=== PATIENT | male | born 1995 | race American Indian/Alaskan Native ===

== ENCOUNTER 2018-12-30 00:27 | Observation (INO) | payer OTHER ==
[~2018-12-30] VITALS: Ht 177.8 cm; Wt 93.3 kg
[2018-12-30 04:23] LABS: BASOPHILS ABSOLUTE AUTO 0.03 K/mm3 (0.00-0.23); BASOPHILS PERCENT AUTO 0 % (0-2); EOSINOPHILS PERCENT AUTO 0 % (0-6); Hematocrit 42.5 % (37.0-53.0); Hemoglobin 15.4 g/dL (13.5-17.5); IMMATURE GRAN ABSOLUTE AUTO 0.08 K/mm3 (0.00-0.10); IMMATURE GRAN PERCENT AUTO 0 % (0-1); LYMPHOCYTES ABSOLUTE AUTO 1.34 K/mm3 (0.84-5.20); LYMPHOCYTES PERCENT AUTO 7 % (21-46); MONOCYTES ABSOLUTE AUTO 1.82 K/mm3 (0.16-1.47); MONOCYTES PERCENT AUTO 9 % (4-13); Mean Corpuscular HGB 30.7 pg (26.0-34.0); Mean Corpuscular HGB Conc 36.2 g/dL (31.5-36.5); Mean Corpuscular Volume 85 fL (80-100); Mean Platelet Volume 11.3 fL (9.1-12.4); NEUTROPHILS ABSOLUTE AUTO 16.08 K/mm3 (1.96-9.15); NEUTROPHILS PERCENT AUTO 83 % (41-73); Platelet Count 170 K/mm3 (150-400); RDW Coefficient Variation 11.5 % (11.7-14.2); RDW Standard Deviation 35.1 fL (35.1-46.3); Red Blood Cell Count 5.02 M/mm3 (4.30-5.90); White Blood Cell Count 19.35 K/mm3 (4.00-11.30)
[2018-12-30 04:40] LABS: Influenza A Negative (NEGATIVE); Influenza B Negative (NEGATIVE)
[2018-12-30 04:41] LABS: Alanine Aminotransfer (ALT/SGP 16 U/L (12-78); Albumin, Blood 4.1 g/dL (3.4-5.0); Alk Phos 93 U/L (50-136); Anion Gap 9 mmol/L (6-16); Aspartate Aminotrans (AST/SGOT 13 U/L (12-37); Bilirubin, Total 0.8 mg/dL (0.1-1.0); Blood Urea Nitrogen 9 mg/dL (8-24); Bun/Creatinine Ratio 10.3 (12.0-20.0); CO2, Blood 27 mmol/L (21-32); Calcium, Blood 9.3 mg/dL (8.5-10.1); Chloride, Blood 100 mmol/L (98-108); Creatinine, Blood 0.88 mg/dL (0.60-1.20); Globulin, Blood 4.1 g/dL (2.2-4.0); Glomerular Filtration Rate >60 (60-); Glucose, Blood 110 mg/dL (70-99); Potassium, Blood 3.3 mmol/L (3.5-5.5); Sodium, Blood 136 mmol/L (136-145); Total Protein, Blood 8.2 g/dL (6.4-8.2)
[2018-12-30 05:42] LABS: Source, Urine Clean Catch
[2018-12-30 05:47] LABS: Bilirubin, Urine Neg (Neg); Blood, Urine Neg (Neg); Glucose Qualitative, Urine Neg (Neg); Ketones, Urine 2+ (Neg); Leukocyte Esterase, Urine Neg (Neg); Nitrite, Urine Neg (Neg); Protein, Urine 2+ (Neg); Urobilinogen, Urine 1+ (Normal); pH, Urine 6.5 (5.0-8.0)
[2018-12-30 05:53] LABS: Amorphous Light (0-Heavy); Appearance, Urine Clear (Clear); Bacteria Rare /hpf; Color, Urine Yellow (P-Yellow); Mucus Mod (0-Heavy); Red Blood Cells, Urine Not Seen /hpf (0-2); Squamous Epithelial Cells Not Seen /hpf (Few); White Blood Cells, Urine Rare /hpf (0-5)
[2018-12-30 05:58] LABS: U Amphetamine Screen Not Detected; U Barbituate Screen Not Detected; U Benzodiazapine Screen Not Detected; U Buprenorphine Screen Not Detected; U Cannabinoids Screen DETECTED; U Cocaine Screen Not Detected; U Methadone Screen Not Detected; U Methamphetamine Screen Not Detected; U Opiates Screen Not Detected; U Oxycodone Screen Not Detected; U Phencyclidine Screen Not Detected; U Propoxyphene Screen Not Detected
[2018-12-30 08:51] LABS: Adenovirus Not Detected (NOT DETECT); Bordetella pertussis Not Detected (NOT DETECT); Chlamydophila pneumoniae Not Detected (NOT DETECT); Coronavirus 229E Not Detected (NOT DETECT); Coronavirus HKU1 Not Detected (NOT DETECT); Coronavirus NL63 Not Detected (NOT DETECT); Coronavirus OC43 Not Detected (NOT DETECT); Human Metapneumovirus Not Detected (NOT DETECT); Human Rhinovirus/Enterovirus Not Detected (NOT DETECT); Influenza A Not Detected (NOT DETECT); Influenza A/2009-H1 Not Detected (NOT DETECT); Influenza A/H1 Not Detected (NOT DETECT); Influenza A/H3 Not Detected (NOT DETECT); Influenza B Not Detected (NOT DETECT); Mycoplasma pneumoniae Not Detected (NOT DETECT); Parainfluenza Virus 1 Not Detected (NOT DETECT); Parainfluenza Virus 2 Not Detected (NOT DETECT); Parainfluenza Virus 3 Not Detected (NOT DETECT); Parainfluenza Virus 4 Not Detected (NOT DETECT); Respiratory Syncytial Virus Not Detected (NOT DETECT)
--- NOTE | 2018-12-30 18:15 | NUR ---
SHIFT SUMMARY RECEIVED PT TO 361 VIA GURNEY FROM ER. PT IS A&O AND ABLE TO TX SELF TO BED. RECEIVED REPORT FROM MALGORZATA WILKS. PT TO ER WITH C/O ABD PAIN THIS AM. LEFT AMA AND LATER BROUGHT BACK BY HIS DAD WHEN ABD PAIN AND FEVER CONTINUED TO INCREASE. PT C/O NECK STIFFNESS; LUMBAR PUNCTURE DONE IN ER. PT HAS CONTINUED TO HAVE LOW GRADE TEMP SINCE COMING TO . TYLENOL AND ADVIL GIVEN, ALONG WITH COOL WASH CLOTHS WITH LITTLE EFFECT. PT HAS AMBULATED TO [facility] NEEDED, INDEPENDENTLY. RECENTLY USED HIS MOM'S FWW WITH SBA FROM HIS MOM. DR DINH UPDATED ON PT'S FEVER; NEW ORDERS PLACED. IV TO LAC NO LONGER PATENT WHEN COMING TO . NEW IV PLACED TO RFA. IVF'S INFUSING PER EMAR. PT REPORTS ABD PAIN R/T NOT EATING FOR PAST 3 DAYS. REPORTS THAT EVERY TIME HE STARTS TO EAT, HE GET'S "SICK". PT REPORTS "JUST THINKING ABOUT EATING MAKES ME SICK". ATTEMPTED TO EAT SOME JELLO, BUT UNABLE TO TOLERATE. DINNER HERE AT THIS TIME. PT WANTED TO TRY AND EAT. RESTING QUIETLY IN BED WATCHING TV. CALL LT IN REACH.
[2018-12-31 06:03] LABS: BASOPHILS ABSOLUTE AUTO 0.04 K/mm3 (0.00-0.23); BASOPHILS PERCENT AUTO 0 % (0-2); EOSINOPHILS PERCENT AUTO 0 % (0-6); Hemoglobin 14.9 g/dL (13.5-17.5); IMMATURE GRAN PERCENT AUTO 1 % (0-1); LYMPHOCYTES ABSOLUTE AUTO 2.06 K/mm3 (0.84-5.20); LYMPHOCYTES PERCENT AUTO 12 % (21-46); MONOCYTES ABSOLUTE AUTO 1.78 K/mm3 (0.16-1.47); MONOCYTES PERCENT AUTO 10 % (4-13); Mean Corpuscular HGB 30.5 pg (26.0-34.0); Mean Corpuscular HGB Conc 35.5 g/dL (31.5-36.5); Mean Corpuscular Volume 86 fL (80-100); Mean Platelet Volume 11.3 fL (9.1-12.4); NEUTROPHILS PERCENT AUTO 77 % (41-73); Platelet Count 158 K/mm3 (150-400); RDW Coefficient Variation 11.6 % (11.7-14.2); RDW Standard Deviation 36.9 fL (35.1-46.3); Red Blood Cell Count 4.88 M/mm3 (4.30-5.90); White Blood Cell Count 17.48 K/mm3 (4.00-11.30)
--- NOTE | 2018-12-31 07:20 | NUR ---
12/31/18 0600 SLEEPING ON AND OFF. RN HAD TO CALL MD FOR MELATONIN EARLIER PT UNABLE TO SLEEP. VITALS STABLE WITH LOW GRADE TEMP NOTED. TAKING ORAL FLUIDS WELL. NO C/O PAIN THIS SHIFT.
--- NOTE | 2018-12-31 15:53 | NUR ---
SHIFT SUMMARY PT SLEEPING FOR A WHILE THIS AM. PER REPORT, PT HAD DIFFICULTY GETTING TO SLEEP LAST NIGHT BEING IN THE HOSPITAL. UP INDEPENDENTLY TO [facility] NEEDED. SLEPT THRU BREAKFAST, NOT WANTING TO GET UP AND EAT, AND THEN ATTEMPTED TO GET HIS FAMILY TO BRING HIM FAST FOOD. DENIED ANY MORE NAUSEA OR STOMACH PAIN SINCE ADMISSION YESTERDAY. DID NOT WANT TO EAT LUNCH MENU ORDERED. DR DINH IN TO SEE PT AGAIN AT LUNCH TIME AND REQUESTED SPAGHETTI AND MEATBALLS. ELEPHANT KEEPER CALLED AND THEREFORE SENT UP REQUEST. PT ATE SOME OF IT. REPORTS THAT HE DOES NOT CARE FOR HOSPITAL FOOD. PT UP TO [facility] WITH LOOSE STOOLS AGAIN TODAY. REPORTED LOOSE STOOLS AT ADMIT YESTERDAY D/T NOT EATING MUCH FOR PAST FEW DAYS. ATTEMPTED TO CALL DR DINH AGAIN FOR POSSIBLE IMODIUM; NO ANS AT THIS TIME. CALL LT IN REACH.
--- NOTE | 2018-12-31 17:15 | NUR ---
DR DINH NOTIFIED OF LOOSE STOOLS. STOOL CX AND IMODIUM ORDERED. PT INFORMED.
--- NOTE | 2018-12-31 21:47 | NUR ---
12/31/182129 ENCOURAGED PT TO EAT/DRINK. STATES HE HAD "BETTER FOOD IN CUSTODIAL." RN ENCOURAGED HIM TO CALL FAMILY IF THEY WOULD BE ABLE TO BRING SOME OUTSIDE FOOD HE LIKES. HE SAID HE WOULD CALL HIS FATHER AND CHECK. ONLY C/O "HUNGER PAIN". RN DISCONNECTED IV FLUIDS SO HE COULD SHOWER AND THEN WILL RE-CONNECT IV FLUIDS AGAIN.
[2018-12-31 22:57] LABS: Adenovirus F 40/41 Not Detected (NOT DETECT); Astrovirus Not Detected (NOT DETECT); Campylobacter Sp Not Detected (NOT DETECT); Cryptosporidium Not Detected (NOT DETECT); Cyclospora Cayetanensis Not Detected (NOT DETECT); E. Coli O157 Not Detected (NOT DETECT); Entamoeba Histolytica Not Detected (NOT DETECT); Enteroaggregative E. coli-EAEC Not Detected (NOT DETECT); Enteropathogenic E. coli-EPEC Not Detected (NOT DETECT); Enterotoxigenic E. coli-ETEC Not Detected (NOT DETECT); Giardia Lamblia Not Detected (NOT DETECT); Norovirus GI/GII Not Detected (NOT DETECT); Plesiomonas Shigelloides Not Detected (NOT DETECT); Rotavirus A Not Detected (NOT DETECT); Salmonella Sp Not Detected (NOT DETECT); Sapovirus Not Detected (NOT DETECT); Shiga Toxin-prod E. coli-STEC Not Detected (NOT DETECT); Shigella/Enteroin E. coli-EIEC Not Detected (NOT DETECT); Vibrio Cholerae Not Detected (NOT DETECT); Vibrio Sp Not Detected (NOT DETECT); Yersinia Enterocolitica Not Detected (NOT DETECT)
--- NOTE | 2019-01-01 02:15 | NUR ---
01/01/19 0205 C/O "EYES FEEL LIKE THEY'RE BEING STABBED".DENIED DRY EYES. MEDICATED PER MAR. ENCOURAGED ORAL INTAKE AND HE REQUESTED CRANBERRY JUICE AND WAS GIVEN. VITALS TAKEN AND REMAIN STABLE.
[2019-01-01 08:17] LABS: BASOPHILS ABSOLUTE AUTO 0.03 K/mm3 (0.00-0.23); BASOPHILS PERCENT AUTO 0 % (0-2); EOSINOPHILS ABSOLUTE AUTO 0.05 K/mm3 (0.00-0.68); EOSINOPHILS PERCENT AUTO 0 % (0-6); Hematocrit 38.8 % (37.0-53.0); IMMATURE GRAN ABSOLUTE AUTO 0.04 K/mm3 (0.00-0.10); IMMATURE GRAN PERCENT AUTO 0 % (0-1); LYMPHOCYTES ABSOLUTE AUTO 2.72 K/mm3 (0.84-5.20); LYMPHOCYTES PERCENT AUTO 24 % (21-46); MONOCYTES ABSOLUTE AUTO 1.41 K/mm3 (0.16-1.47); MONOCYTES PERCENT AUTO 13 % (4-13); Mean Corpuscular HGB 30.2 pg (26.0-34.0); Mean Corpuscular HGB Conc 36.1 g/dL (31.5-36.5); Mean Corpuscular Volume 84 fL (80-100); Mean Platelet Volume 11.3 fL (9.1-12.4); NEUTROPHILS ABSOLUTE AUTO 6.97 K/mm3 (1.96-9.15); NEUTROPHILS PERCENT AUTO 62 % (41-73); Platelet Count 184 K/mm3 (150-400); RDW Coefficient Variation 11.7 % (11.7-14.2); RDW Standard Deviation 35.5 fL (35.1-46.3); Red Blood Cell Count 4.64 M/mm3 (4.30-5.90); White Blood Cell Count 11.22 K/mm3 (4.00-11.30)
[2019-01-01 08:30] LABS: Anion Gap 4 mmol/L (6-16); Blood Urea Nitrogen 10 mg/dL (8-24); Bun/Creatinine Ratio 14.5 (12.0-20.0); CO2, Blood 27 mmol/L (21-32); Calcium, Blood 9.1 mg/dL (8.5-10.1); Chloride, Blood 110 mmol/L (98-108); Creatinine, Blood 0.69 mg/dL (0.60-1.20); Glomerular Filtration Rate >60 (60-); Glucose, Blood 97 mg/dL (70-99); Potassium, Blood 3.5 mmol/L (3.5-5.5); Sodium, Blood 141 mmol/L (136-145)
[2019-01-01] MEDS ORDERED: ACET325 PO ×2 (10:07)
[2019-01-01] MEDS ORDERED: IBUP400 PO ×2 (10:07)
[2019-01-01] MEDS ORDERED: Anti-Diarrheal2 MG PO ×2 (10:08)
--- NOTE | 2019-01-01 11:25 | NUR ---
PATIENT D/C'D TO HOME. RX MEDICATIONS FAXED TO [facility]. D/C INSTRUCTIONS AND EDUCATION DISCUSSED WITH PATIENT AND COPY PROVIDED. PATIENT DOES NOT HAVE A PCP, PRODUCTION GRIP TO CONTACT PATIENT WITH AN APPT. PATIENT DENIES ANY FURTHER QUESTIONS OR CONCERNS.
== END 2019-01-01 11:23 | disposition home or self-care (01) ==
LOC: ER 00:27 → MEDS 15:44 → ENPENDDIS 01-01 10:14 → MEDS 01-01 11:23
PROVIDERS: Emergency Medicine; Hospitalist; ADMIT Internal Medicine
DX: A41.9 Sepsis, unspecified organism (principal); R80.9 Proteinuria, unspecified; E87.6 Hypokalemia; Z86.59 Personal history of other mental and behavioral disorders; Z53.21 Procedure and treatment not carried out due to patient leaving prior to being seen by health care provider
CPT/HCPCS: 0097U; 0099U; 36415; 71046; 80048; 80053; 81001; 83605; 83690; 83735; 83880; 84145; 84484; 85025; 87040; 87804; 93005; 93010; 96360; 96361; 99285-25; A9270; G0378; J3370; J7030; J7050

== ENCOUNTER 2018-12-30 12:43 | Emergency (ER) | payer OTHER ==
[~2018-12-30] VITALS: Ht 177.8 cm; Wt 83.9 kg
[2018-12-30 14:00] LABS: Glucose, CSF 76 mg/dL (40-70)
[2018-12-30 14:03] LABS: WBC Count, CSF 1 /mm3 (0-5)
[2018-12-30 14:06] LABS: Appearance, CSF Clear (Clear); Color, CSF No Color (No Color)
[2018-12-30 14:22] LABS: Appearance, CSF Clear (Clear); Color, CSF No Color (No Color); RBC Count, CSF 1 /mm3 (0-0); WBC Count, CSF 2 /mm3 (0-5)
[2018-12-30 14:23] LABS: RBC Count, CSF 0 /mm3 (0-0)
[2018-12-30 15:50] LABS: Lymphocytes, CSF 71 % (40-80); Monocytes, CSF 14 % (15-45); Neutrophils, CSF 14 % (0-6)
[2018-12-30 15:56] LABS: Lymphocytes, CSF 67 % (40-80); Monocytes, CSF 22 % (15-45); Neutrophils, CSF 11 % (0-6)
== END 2018-12-30 15:26 | disposition other institution (70) ==
LOC: ER 12:43
PROVIDERS: Emergency Medicine
DX: R50.9 Fever, unspecified (principal); R51 Headache; Z91.030 Bee allergy status
CPT/HCPCS: 62270; 82945; 84157; 87070; 87205; 89051; 96361-59; 96374-59; 96375-59; 99285-25; J1170; J1885; J2405; J7030

== ENCOUNTER → 2019-05-07 | Outpatient (CLI) | payer OTHER ==
[~2019-05-07] MED LIST: ACET325 PO; Anti-Diarrheal2 MG PO; IBUP400 PO
== END ==
LOC: LAB EV 15:04 → LAB SHORT 15:04
DX: J02.9 Acute pharyngitis, unspecified (principal)
CPT/HCPCS: 87081